=== PATIENT | female | born 1990 | race Caucasian/White ===

== ENCOUNTER 2018-06-12 09:11 | Emergency (ER) | payer BC ==
[2018-06-12] MEDS ORDERED: diphenhydrAMINE 50 MG/ML SDV IVPUSH ONE (09:44)
[2018-06-12] MEDS ORDERED: Sodium Chloride 0.9% 1,000 ML IV SCH (09:45)
[2018-06-12] MEDS ORDERED: Ketorolac 30 MG/ML SDV IVPUSH ONE (09:45)
[2018-06-12] MEDS ORDERED: Metoclopramide 10 MG/2 ML SDV IVPUSH ONE (09:46)
--- NOTE | 2018-06-12 11:01 | EDM.PDOC ---
ED HPI GENERAL MEDICAL PROBLEM - General Chief Complaint: General Stated Complaint: DIZZY- LEFT SIDE WEAKNESS Time Seen by Provider: 06/12/18 09:13 Source of Information: Reports: Patient History Limitations: Reports: No Limitations - History of Present Illness INITIAL COMMENTS - FREE TEXT/NARRATIVE: This pleasant very woman with LMP 06/07/18, who is on control pills and is a 1 para 1001 at 7 AM noted bilateral plugging of her ears moderate right parietal headache with right neck ache 8/10 and associated transient left face numbness, paresthesia and transient left hand paresis. "I could not hold onto my cell phone for 15-20 minutes. She has history of 2 previous migraines. Denies photophobia and phonophobia, or difficulty with walking or speaking, scintillating scotoma, fortification syndrome blurred vision. No hx compromise of her dental health, head injury, recent sinusitis, recent infection fever chills or cough. Presently the plugging in her ears is gone. Headache is still 8/10 intensity. No associated diaphoresis or rhinorrhea. She started work at 6 AM at [employer] headache Pain Score (Numeric/FACES): 8 - Related Data Allergies Allergy/AdvReac Type Severity Reaction Status Date / Time No Known Allergies Allergy Verified 06/12/18 09:21 Home Meds: Home Meds Escitalopram [Lexapro] 20 mg PO DAILY 06/12/18 [History] Metoclopramide HCl [Reglan] 10 mg PO ASDIRECTED PRN #20 tablet 06/12/18 [Rx] buPROPion HCl [Wellbutrin Xl] 300 mg PO DAILY 06/12/18 [History] Past Medical History Neurological History: Reports: Migraines Psychiatric History: Reports: Anxiety, Depression Social & Family History - Family History Family Medical History: Noncontributory ED ROS GENERAL - Review of Systems Review Of Systems: ROS reveals no pertinent complaints other than HPI. ED EXAM, GENERAL - Physical Exam Exam: See Below Free Text/Narrative:: As well muscled well-nourished woman in mild distress accompanied by her Exam Limited By: No Limitations General Appearance: Alert, WD/WN, Mild Distress Eye Exam: Bilateral Eye: Normal Inspection (No diplopia no blurred vision no pupil abnormality) Ear Exam: Bilateral Ear: Auricle Normal, Canal Normal, TM normal Nose: Normal Inspection Throat/Mouth: Normal Inspection, Normal Lips, Normal Teeth, Normal Gums, Normal Voice, No Airway Compromise Head: Atraumatic, Normocephalic Neck: Normal Inspection, Supple, Non-Tender, Full Range of Motion, Other ( Interval cervical adenopathy) Respiratory/Chest: No Respiratory Distress, Lungs Clear, Normal Breath Sounds, No Accessory Muscle Use, Chest Non-Tender Peripheral Pulses: 1+: Radial (L), Radial (R) GI/Abdominal: Normal Bowel Sounds, Soft, Non-Tender, No Organomegaly, No Distention, No Abnormal Bruit, No Mass, Pelvis Stable (Female) Exam: Deferred Rectal (Female) Exam: Deferred Extremities: Normal Inspection, Normal Range of Motion, Non-Tender, No Pedal Edema, Normal Capillary Refill Neurological: Alert, Oriented, CN II-XII Intact, Normal Cognition, Normal Gait, Normal Reflexes, No Motor/Sensory Deficits Psychiatric: Normal Affect, Normal Mood Skin Exam: Warm, Dry, Intact, Normal Color Lymphatic: No Adenopathy Course - Vital Signs Last Recorded V/S: Last Vital Signs Temp 36.6 C 06/12/18 09:12 Pulse 56 L 06/12/18 10:57 Resp 16 06/12/18 10:57 BP 116/73 06/12/18 10:57 Pulse Ox 100 06/12/18 10:57 - Orders/Labs/Meds Meds: Medications Discontinued Medications Generic Name Dose Route Start Last Admin Trade Name Freq PRN Reason Stop Dose Admin Diphenhydramine HCl 50 mg 06/12/18 09:44 06/12/18 10:01 Benadryl IVPUSH 06/12/18 09:45 50 mg ONETIME ONE Administration Sodium Chloride 1,000 mls @ 999 mls/hr 06/12/18 09:45 06/12/18 09:55 Normal Saline IV 999 mls/hr ASDIRECTED DANIELA Administration Ketorolac Tromethamine 30 mg 06/12/18 09:45 06/12/18 10:01 Toradol IVPUSH 06/12/18 09:46 30 mg ONETIME ONE Administration Metoclopramide HCl 10 mg 06/12/18 09:46 06/12/18 10:01 Reglan IVPUSH 06/12/18 09:47 10 mg ONETIME ONE Administration Departure - Departure Time of Disposition: 11:00 (Diagnosis migraine with transient racial numbness. After been treated with intravenous flush thousand cc normal saline, Reglan 10 mg IV, Toradol 30 mg IV, and Benadryl 50 mg IV her headache is now 3/10. Patient is to follow-up with Dr. Estrada) Disposition: Home, Self-Care 01 Condition: Good Clinical Impression: Migraine Qualifiers: Migraine type: without aura Status migrainosus presence: without status migrainosus Intractability: not intractable Qualified Code(s): G43.009 - Migraine without aura, not intractable, without status migrainosus - Discharge Information *PRESCRIPTION DRUG MONITORING PROGRAM REVIEWED*: Not Applicable *COPY OF PRESCRIPTION DRUG MONITORING REPORT IN PATIENT DANIEL: Not Applicable Prescriptions: Metoclopramide HCl [Reglan] 10 mg PO ASDIRECTED PRN #20 tablet PRN Reason: Headache Instructions: Nausea and Vomiting, Adult, Migraine Headache Referrals: Adelaide Serna [employer] [Primary Care Provider] - Forms: ED Department Discharge Additional Instructions: He had a migraine headache and your symptoms are secondary to the migraine headache. Is good to see that she had great relief from the medications. At the onset of any migraine headache take these for medicine stat: Reglan 10 mg , ibuprofen 600 mg, Tylenol 1000 mg, Benadryl 50 mg (OTC) Follow-up with in a week, earlier if worse To the best he can to drink at least 2 quarts of liquid a day. Avoid migraine triggers. Avoid : smoking exposure, caffeine, soda pop, excessive glucose latent foods
== END 2018-06-12 11:39 | disposition home or self-care (01) ==
LOC: FB.ED 09:11
DX: G43.009 Migraine without aura, not intractable, without status migrainosus (principal); F41.9 Anxiety disorder, unspecified; F32.9 Major depressive disorder, single episode, unspecified; Z79.899 Other long term (current) drug therapy
CPT/HCPCS: 96361; 96374; 96375; 99283-25; J1200; J1885; J2765; J7030